=== PATIENT | male | born 1960 | race African-American/Black ===

== ENCOUNTER 2018-01-27 22:48 | Emergency (ER) | payer MEDICAID, OTHER ==
[~2018-01-27] VITALS: Ht 175.3 cm; Wt 94.0 kg
[2018-01-27] MEDS ORDERED: NITROGLYCERIN OINT 1GM/INCH UDPKT TD STA (23:52)
[2018-01-27] MEDS ORDERED: ASPIRIN 81MG TABLET PO STA (23:52)
[2018-01-28] MEDS ORDERED: ENALAPRIL 2.5MG/2ML VIAL 2ML IV ONE
[2018-01-28 00:25] LABS: BASOPHILS % 0.7 % (0.0-2.0); EOSINOPHILS % 2.3 % (0.0-5.0); HEMATOCRIT. 41.5 % (42.0-52.0); LYMPHOCYTES % 51.7 % (20.0-50.0); MEAN CORPUSCULAR HEMOGLOBIN 29.7 pg (28.0-32.0); MEAN CORPUSCULAR VOLUME 88.2 fL (80.0-94.0); MEAN PLATELET VOLUME 9.7 fl (7.4-10.4); MONOCYTES % 13.2 % (2.0-8.0); NEUTROPHILS % 32.1 % (40.0-76.0); PLATELET 185 x1000/uL (130-400); RED CELL DISTRIBUTION WIDTH 13.8 % (11.6-14.6)
[2018-01-28 00:27] LABS: CHLORIDE 105 mEq/L (98-107)
[2018-01-28] MEDS ORDERED: CLONIDINE 0.1MG TABLET PO PRN (02:15)
[2018-01-28] MEDS ORDERED: ACETAMINOPHEN 325MG TABLET PO PRN (02:15)
[2018-01-28] MEDS ORDERED: ENOXAPARIN 40MG/0.4ML SYR SUBCUT SCH (02:15)
[2018-01-28] MEDS ORDERED: DIPHENHYDRAMINE 50MG/ML VIAL IV PRN (02:15)
[2018-01-28] MEDS ORDERED: MAGNESIUM/ALUMINUM HYDROXIDE/SIMETHICONE 30ML UDC PO PRN (02:15)
[2018-01-28] MEDS ORDERED: ONDANSETRON HCL 4MG/2ML VIAL IV PRN (02:15)
[2018-01-28] MEDS ORDERED: SODIUM CHLORIDE 0.9% INJ 3ML FLUSH IVF SCH (06:00)
[2018-01-28 06:22] LABS: HDL CHOLESTEROL 39 mg/dL (40-59); LDL CHOLESTEROL 63 mg/dL (5-100)
[2018-01-28 07:35] VITALS: BP 122/68
[2018-01-28] MEDS ORDERED: AMLODIPINE 5MG TABLET PO SCH ×2 (09:00)
[2018-01-28] MEDS ORDERED: LOSARTAN POTASSIUM 25 MG TABLET PO SCH (09:00)
== END 2018-01-28 07:47 | disposition left against medical advice (07) ==
LOC: ER 22:48 → EDBEDREQTM 01-28 00:53 → EDBEDREQ 01-28 00:53 → ENRESERV 01-28 07:25 → CANRESERV 01-28 07:25 → ER 01-28 07:47 → CANBEDREQ 01-28 08:31
DX: I10 Essential (primary) hypertension (principal); R20.0 Anesthesia of skin
CPT/HCPCS: 36415; 71045; 80053; 80061; 84484; 85025; 93005; 96374; 99285; J3490; Z7610

== ENCOUNTER 2019-10-11 12:01 | Emergency (ER) | payer MEDICAID ==
[~2019-10-11] VITALS: Ht 175.3 cm; Wt 100.0 kg
[2019-10-11] MEDS ORDERED: KETOROLAC 60MG/2ML VIAL IM STA (12:26)
[2019-10-11 13:04] VITALS: BP 157/82
== END 2019-10-11 13:22 | disposition home or self-care (01) ==
LOC: ER 12:08
DX: K02.9 Dental caries, unspecified (principal)
CPT/HCPCS: 96372; 99283; J1885

== ENCOUNTER 2022-05-07 17:45 | Emergency (ER) | payer MEDICAID, OTHER ==
[~2022-05-07] VITALS: Ht 175.3 cm; Wt 92.0 kg
[2022-05-07 17:50] VITALS: BP 169/109
[2022-05-07 19:34] LABS: HEMATOCRIT. 48.7 % (42.0-52.0); HEMOGLOBIN. 16.4 g/dL (14.0-18.0); MEAN CORPUSCULAR HEMOGLOBIN 30.5 pg (28.0-32.0); MEAN CORPUSCULAR VOLUME 90.6 fL (80.0-94.0); MEAN PLATELET VOLUME 9.8 fl (7.4-10.4); PLATELET 172 x1000/uL (130-400); RED BLOOD CELL COUNT 5.38 mill/uL (4.7-6.1); RED CELL DISTRIBUTION WIDTH 14.7 % (11.6-14.6)
[2022-05-07 20:38] LABS: CHLORIDE 103 mEq/L (98-107)
[2022-05-07 20:42] LABS: PLATELET ESTIMATE NORMAL
== END 2022-05-08 00:04 | disposition home or self-care (01) ==
LOC: ER 17:45
DX: R07.89 Other chest pain (principal); I10 Essential (primary) hypertension
CPT/HCPCS: 36415; 71045; 80053; 83880; 84484; 85025; 93005; 99285

== ENCOUNTER 2022-05-26 17:57 | Emergency (ER) | payer OTHER ==
[~2022-05-26] VITALS: Ht 175.3 cm; Wt 92.0 kg
[2022-05-26] MEDS ORDERED: MORPHINE SULFATE 4 MG/ML CPJ (NOT FOR IM USE) IV ONE (18:45)
[2022-05-26 19:07] LABS: BASOPHILS % 0.8 % (0.0-2.0); EOSINOPHILS % 0.7 % (0.0-5.0); HEMATOCRIT. 44.2 % (42.0-52.0); HEMOGLOBIN. 14.9 g/dL (14.0-18.0); LYMPHOCYTES % 33.1 % (20.0-50.0); MEAN CORPUSCULAR HEMOGLOBIN 30.4 pg (28.0-32.0); MEAN CORPUSCULAR VOLUME 90.2 fL (80.0-94.0); MEAN PLATELET VOLUME 9.8 fl (7.4-10.4); MONOCYTES % 13.4 % (2.0-8.0); PLATELET 189 x1000/uL (130-400); RED CELL DISTRIBUTION WIDTH 14.2 % (11.6-14.6)
[2022-05-26 19:11] LABS: CHLORIDE 105 mEq/L (98-107)
[2022-05-26 19:14] LABS: PARTIAL THROMBOPLASTIN TIME 27.9 sec (23.4-31.0); PROTHROMBIN TIME 10.8 sec (9.6-11.0)
[2022-05-27 00:26] LABS: CLARITY URINE CLEAR (CLEAR); COLOR URINE YELLOW (YELLOW); KETONES URINE NEGATIVE (NEGATIVE); LEUKOCYTE ESTERASE URINE NEGATIVE (NEGATIVE); NITRITE URINE NEGATIVE (NEGATIVE); OCCULT BLOOD URINE NEGATIVE (NEGATIVE); PH URINE 7.5 (4.5-8.0); PROTEIN URINE NEGATIVE (NEGATIVE); SPECIFIC GRAVITY URINE 1.039 (1.005-1.030); UROBILINOGEN URINE 0.2 E.U./dL (0.2-1.0)
[2022-05-27 01:13] VITALS: BP 125/70
== END 2022-05-27 01:16 | disposition home or self-care (01) ==
LOC: ER 17:57
DX: K40.90 Unilateral inguinal hernia, without obstruction or gangrene, not specified as recurrent (principal); I10 Essential (primary) hypertension
CPT/HCPCS: 36415; 74177; 76870; 80053; 81003; 83605; 85025; 85610; 85730; 93005; 93976; 99285; J2270

== ENCOUNTER 2024-01-24 14:31 | Emergency (ER) | payer MEDICAID, OTHER ==
[~2024-01-24] VITALS: Ht 175.3 cm; Wt 86.0 kg
[2024-01-24 14:34] VITALS: BP 176/111; PULSE 60; RESP 18; TEMP 98.4; O2SAT 100
[2024-01-24 15:51] LABS: BASOPHILS % 1.7 % (0.0-2.0); EOSINOPHILS % 2.4 % (0.0-5.0); HEMATOCRIT. 42.8 % (42.0-52.0); HEMOGLOBIN. 14.1 g/dL (14.0-18.0); LYMPHOCYTES % 46.1 % (20.0-50.0); MEAN CORPUSCULAR HEMOGLOBIN 29.4 pg (28.0-32.0); MEAN CORPUSCULAR HGB CONC 32.9 g/dL (31.0-37.0); MEAN CORPUSCULAR VOLUME 89.5 fL (80.0-94.0); MEAN PLATELET VOLUME 9.1 fl (7.4-10.4); MONOCYTES % 8.7 % (2.0-8.0); NEUTROPHILS % 41.1 % (40.0-76.0); PLATELET 215 x1000/uL (130-400); RED BLOOD CELL COUNT 4.78 mill/uL (4.7-6.1); RED CELL DISTRIBUTION WIDTH 14.2 % (11.6-14.6); WHITE BLOOD COUNT 4.9 x1000/uL (4.5-11.0)
[2024-01-24 16:06] LABS: ALANINE AMINOTRANSFERASE 34 IU/L (10-49); ALBUMIN 4.6 g/dL (3.2-4.8); ASPARTATE AMINOTRANSFERASE 25 IU/L (<34); BILIRUBIN TOTAL 0.3 mg/dL (0.1-1.0); CALCIUM 9.1 mg/dL (8.7-10.4); CARBON DIOXIDE 31 mEq/L (21-32); CHLORIDE 106 mEq/L (98-107); CREATININE 1.3 mg/dL (0.6-1.3); GLUCOSE 95 mg/dL (70-105); SODIUM 141 mEq/L (136-145); UREA NITROGEN BLOOD 18 mg/dL (9-23)
== END 2024-01-24 20:42 | disposition left against medical advice (07) ==
LOC: ER 14:31
DX: I10 Essential (primary) hypertension (principal); Z53.21 Procedure and treatment not carried out due to patient leaving prior to being seen by health care provider
CPT/HCPCS: 80053; 85025; 36415; 93005; 99281; Z7610

== ENCOUNTER 2025-03-20 00:55 | Emergency (ER) | payer MEDICAID, OTHER ==
[~2025-03-20] VITALS: Ht 175.3 cm; Wt 87.0 kg
[2025-03-20 01:31] VITALS: BP 177/107; TEMP 36.9; O2SAT 98
[2025-03-20 02:12] LABS: HEMATOCRIT. 46.5 % (42.0-52.0); HEMOGLOBIN. 15.1 g/dL (14.0-18.0); MEAN CORPUSCULAR HEMOGLOBIN 29.2 pg (28.0-32.0); MEAN CORPUSCULAR HGB CONC 32.5 g/dL (31.0-37.0); MEAN CORPUSCULAR VOLUME 89.7 fL (80.0-94.0); PLATELET 159 x1000/uL (130-400); RED BLOOD CELL COUNT 5.18 mill/uL (4.7-6.1); RED CELL DISTRIBUTION WIDTH 14.5 % (11.6-14.6); WHITE BLOOD COUNT 4.4 x1000/uL (4.5-11.0)
[2025-03-20 02:18] LABS: CHLORIDE 106 mEq/L (98-107); POTASSIUM 4.2 mEq/L (3.5-5.1); SODIUM 139 mEq/L (136-145)
[2025-03-20 02:19] LABS: CARBON DIOXIDE 27 mEq/L (21-32)
[2025-03-20 02:20] LABS: CALCIUM 9.3 mg/dL (8.7-10.4)
[2025-03-20 02:24] LABS: CREATININE 1.3 mg/dL (0.6-1.3)
[2025-03-20 02:25] LABS: GLUCOSE 109 mg/dL (70-105); UREA NITROGEN BLOOD 15 mg/dL (9-23)
[2025-03-20 02:26] LABS: ALANINE AMINOTRANSFERASE 25 IU/L (10-49); ALBUMIN 5.2 g/dL (3.2-4.8); ASPARTATE AMINOTRANSFERASE 26 IU/L (<34)
[2025-03-20 02:27] LABS: BILIRUBIN DIRECT 0.2 mg/dL (<=3.0); BILIRUBIN TOTAL 0.8 mg/dL (0.1-1.0); PROTEIN TOTAL 7.9 g/dL (6.0-8.3)
[2025-03-20 02:33] LABS: DIFFERENTIAL COMMENT 1
[2025-03-20 03:07] LABS: PLATELET ESTIMATE NORMAL
[2025-03-20] MEDS: PREDNISONE 20MG TABLET PO STA (03:10)
[2025-03-20 03:32] VITALS: PULSE 50; RESP 18; O2SAT 97
[2025-03-20] MEDS: ALBUTEROL (0.083%) 2.5MG/3ML NEB HHN STA (03:32)
[2025-03-20] MEDS: IPRATROPIUM BROMIDE (0.02%) 0.5MG/2.5ML NEB HHN STA (03:32)
== END 2025-03-20 07:24 | disposition home or self-care (01) ==
LOC: ER 00:55
DX: R10.11 Right upper quadrant pain (principal); J06.9 Acute upper respiratory infection, unspecified; I10 Essential (primary) hypertension; Z98.890 Other specified postprocedural states
CPT/HCPCS: 99284; 74176; 71045; 80076; 80048; 83690; 85025; 36415; 94640; J7512; 94070; 94760